=== PATIENT | male | born 1950 | race Caucasian/White ===

== ENCOUNTER 2019-01-02 08:14 | Observation (INO) | payer OTHER ==
[~2019-01-02] VITALS: Ht 157.5 cm; Wt 61.2 kg
[~2019-01-02 08:14] MED LIST: OXYACE5T PO
[2019-01-02 08:53] LABS: BASOPHILS ABSOLUTE AUTO 0.04 K/mm3 (0.00-0.23); BASOPHILS PERCENT AUTO 0 % (0-2); EOSINOPHILS ABSOLUTE AUTO 0.16 K/mm3 (0.00-0.68); EOSINOPHILS PERCENT AUTO 1 % (0-6); Hematocrit 48.8 % (37.0-53.0); IMMATURE GRAN ABSOLUTE AUTO 0.16 K/mm3 (0.00-0.10); IMMATURE GRAN PERCENT AUTO 1 % (0-1); LYMPHOCYTES ABSOLUTE AUTO 2.43 K/mm3 (0.84-5.20); LYMPHOCYTES PERCENT AUTO 14 % (21-46); MONOCYTES ABSOLUTE AUTO 0.76 K/mm3 (0.16-1.47); MONOCYTES PERCENT AUTO 5 % (4-13); Mean Corpuscular HGB Conc 32.8 g/dL (31.5-36.5); Mean Corpuscular Volume 91 fL (80-100); Mean Platelet Volume 10.6 fL (9.1-12.4); NEUTROPHILS ABSOLUTE AUTO 13.39 K/mm3 (1.96-9.15); NEUTROPHILS PERCENT AUTO 79 % (41-73); Platelet Count 272 K/mm3 (150-400); RDW Coefficient Variation 14.2 % (11.7-14.2); RDW Standard Deviation 47.8 fL (35.1-46.3); Red Blood Cell Count 5.34 M/mm3 (4.30-5.90); White Blood Cell Count 16.94 K/mm3 (4.00-11.30)
[2019-01-02 09:04] LABS: Alanine Aminotransfer (ALT/SGP 200 U/L (12-78); Albumin, Blood 3.5 g/dL (3.4-5.0); Albumin/Globulin Ratio 1.1 (0.8-1.8); Alk Phos 88 U/L (50-136); Anion Gap 5 mmol/L (6-16); Aspartate Aminotrans (AST/SGOT 261 U/L (12-37); Bilirubin, Total 0.7 mg/dL (0.1-1.0); Blood Urea Nitrogen 19 mg/dL (8-24); Bun/Creatinine Ratio 15.8 (12.0-20.0); CO2, Blood 27 mmol/L (21-32); Calcium, Blood 8.5 mg/dL (8.5-10.1); Chloride, Blood 108 mmol/L (98-108); Globulin, Blood 3.2 g/dL (2.2-4.0); Glomerular Filtration Rate >60 (60-); Glucose, Blood 144 mg/dL (70-99); Potassium, Blood 4.2 mmol/L (3.5-5.5); Sodium, Blood 140 mmol/L (136-145); Total Protein, Blood 6.7 g/dL (6.4-8.2)
[2019-01-02 09:11] LABS: International Normalized Ratio 1.01; Prothrombin Time Results 10.7 Sec (9.7-11.5)
--- NOTE | 2019-01-02 13:04 | NUR ---
PT ARRIVED TO THE ROOM AT APPROXIMATELY 1300
[2019-01-02] MEDS ORDERED: OMEP20ER PO (13:22)
--- NOTE | 2019-01-02 19:19 | NUR ---
Echocardiogram completed.
--- NOTE | 2019-01-02 19:31 | NUR ---
SHIFT SUMMARY PAIN HAS BEEN MANAGED WITH PO PAIN MEDICATION. PT ALERT AND ORIENTED SINCE ARRIVAL TO ROOM. SBA WHEN OOB. VSS. REPORT GIVEN TO EDWARDO PEREZ.
--- NOTE | 2019-01-03 06:18 | NUR ---
LYING IN SEMI FOWLERS WITH EYES CLOSED. HAS RESTED WELL SINCE START OF SHIFT. HAS BEEN TREATED FOR PAIN X1 THIS SHIFT. DENIES PAIN, DISCOMFORT, OR FURTHER NEEDS AT THIS TIME. SAFETY MEASURES IN PLACE. WILL GIVE HAND OFF TO ONCOMING SHIFT USING SBAR.
[2019-01-03] MEDS ORDERED: OXYC5 PO (12:38)
--- NOTE | 2019-01-03 14:10 | NUR ---
DISCHARGE PT PROVIDED WITH WRITTEN AND VERBAL DISCHARGE INSTRUCTIONS. PT EDUCATED THAT HE SHOULD STAY HYDRATED . PT EDUCATED TO COME TO THE ER IF HE DEVELOPES CHEST PRESSURE THAT IS DIFFERENT FROM THE R RIB PAIN HE HAS BEEN HAVING. PT EDUCATED TO FOLLOW UP WITH HIS PRIMARY CARE DOCTOR WITHIN 1 WEEK. QUESTIONS WERE ANSWERED AND PT REPORTED UNDERSTANDING HOME CARE INSTRUCTIONS. PT AMBULATED OUT WITH FAMILY, PT DECLINED NEED FOR W/C TO GET OUT TO THE VEHICLE.
== END 2019-01-03 12:55 | disposition home or self-care (01) ==
LOC: ER 08:14 → SURS 08:15 → ER 10:02 → SURS 10:02
PROVIDERS: Emergency Medicine; ADMIT Surgery
DX: S22.41XA Multiple fractures of ribs, right side, initial encounter for closed fracture (principal); R00.1 Bradycardia, unspecified; R77.8 Other specified abnormalities of plasma proteins; F17.210 Nicotine dependence, cigarettes, uncomplicated; Z79.899 Other long term (current) drug therapy; W37.8XXA Explosion and rupture of other pressurized tire, pipe or hose, initial encounter
CPT/HCPCS: 36415; 71045; 71260; 74177; 80053; 83690; 84484; 85025; 85610; 85730; 93005; 93010; 93306; 99285-25; G0378; Q9967

== ENCOUNTER 2021-04-10 18:18 | Emergency (ER) | payer OTHER ==
[~2021-04-10] VITALS: Ht 157.5 cm; Wt 60.3 kg
[~2021-04-10 18:18] MED LIST changes: +OMEP20ER PO; +OXYC5 PO
[2021-04-10 19:07] LABS: BASOPHILS ABSOLUTE AUTO 0.05 K/mm3 (0.00-0.23); BASOPHILS PERCENT AUTO 1 % (0-2); EOSINOPHILS ABSOLUTE AUTO 0.32 K/mm3 (0.00-0.68); EOSINOPHILS PERCENT AUTO 4 % (0-6); Hemoglobin 16.3 g/dL (13.5-17.5); IMMATURE GRAN ABSOLUTE AUTO 0.03 K/mm3 (0.00-0.10); IMMATURE GRAN PERCENT AUTO 0 % (0-1); LYMPHOCYTES ABSOLUTE AUTO 2.83 K/mm3 (0.84-5.20); LYMPHOCYTES PERCENT AUTO 32 % (21-46); MONOCYTES ABSOLUTE AUTO 0.81 K/mm3 (0.16-1.47); MONOCYTES PERCENT AUTO 9 % (4-13); Mean Corpuscular HGB 29.7 pg (26.0-34.0); Mean Corpuscular Volume 87 fL (80-100); Mean Platelet Volume 10.9 fL (9.1-12.4); NEUTROPHILS ABSOLUTE AUTO 4.83 K/mm3 (1.96-9.15); NEUTROPHILS PERCENT AUTO 55 % (41-73); Platelet Count 253 K/mm3 (150-400); RDW Coefficient Variation 13.6 % (11.7-14.2); RDW Standard Deviation 43.7 fL (35.1-46.3); Red Blood Cell Count 5.49 M/mm3 (4.30-5.90); White Blood Cell Count 8.87 K/mm3 (4.00-11.30)
[2021-04-10 19:22] LABS: Alanine Aminotransfer (ALT/SGP 22 U/L (12-78); Albumin, Blood 3.9 g/dL (3.4-5.0); Albumin/Globulin Ratio 1.1 (0.8-1.8); Alk Phos 76 U/L (50-136); Anion Gap 6 mmol/L (6-16); Aspartate Aminotrans (AST/SGOT 23 U/L (12-37); Bilirubin, Total 0.7 mg/dL (0.1-1.0); Blood Urea Nitrogen 16 mg/dL (8-24); Bun/Creatinine Ratio 15.4 (12.0-20.0); CO2, Blood 23 mmol/L (21-32); Calcium, Blood 10.1 mg/dL (8.5-10.1); Chloride, Blood 109 mmol/L (98-108); Creatinine, Blood 1.04 mg/dL (0.60-1.20); Globulin, Blood 3.4 g/dL (2.2-4.0); Glomerular Filtration Rate >60 (60-); Glucose, Blood 90 mg/dL (70-99); Potassium, Blood 3.9 mmol/L (3.5-5.5); Sodium, Blood 138 mmol/L (136-145); Total Protein, Blood 7.3 g/dL (6.4-8.2)
== END 2021-04-10 22:55 | disposition home or self-care (01) ==
LOC: ER 18:18
PROVIDERS: Emergency Medicine
DX: H53.8 Other visual disturbances (principal); R40.4 Transient alteration of awareness
CPT/HCPCS: 36415; 70450; 80053; 85025; 93005; 93010; 99285-25

== ENCOUNTER 2023-06-15 19:38 | Emergency (ER) | payer OTHER ==
[~2023-06-15] VITALS: Ht 157.5 cm; Wt 61.2 kg
[2023-06-15 20:18] LABS: BASOPHILS ABSOLUTE AUTO 0.07 K/mm3 (0.00-0.23); BASOPHILS PERCENT AUTO 1 % (0-2); EOSINOPHILS ABSOLUTE AUTO 0.31 K/mm3 (0.00-0.68); EOSINOPHILS PERCENT AUTO 3 % (0-6); Hematocrit 47.8 % (37.0-53.0); Hemoglobin 15.9 g/dL (13.5-17.5); IMMATURE GRAN ABSOLUTE AUTO 0.05 K/mm3 (0.00-0.10); IMMATURE GRAN PERCENT AUTO 0 % (0-1); LYMPHOCYTES ABSOLUTE AUTO 3.37 K/mm3 (0.84-5.20); LYMPHOCYTES PERCENT AUTO 30 % (21-46); MONOCYTES ABSOLUTE AUTO 0.93 K/mm3 (0.16-1.47); MONOCYTES PERCENT AUTO 8 % (4-13); Mean Corpuscular HGB 30.2 pg (26.0-34.0); Mean Corpuscular HGB Conc 33.3 g/dL (31.5-36.5); Mean Corpuscular Volume 91 fL (80-100); Mean Platelet Volume 10.2 fL (9.1-12.4); NEUTROPHILS ABSOLUTE AUTO 6.41 K/mm3 (1.96-9.15); NEUTROPHILS PERCENT AUTO 58 % (41-73); Platelet Count 276 K/mm3 (150-400); Red Blood Cell Count 5.27 M/mm3 (4.30-5.90); White Blood Cell Count 11.14 K/mm3 (4.00-11.30)
[2023-06-15 20:33] LABS: Albumin, Blood 3.5 g/dL (3.4-5.0); Bilirubin, Total 0.2 mg/dL (0.1-1.0); Bun/Creatinine Ratio 17.2 (12.0-20.0); Creatinine, Blood 1.51 mg/dL (0.60-1.20); Globulin, Blood 3.4 g/dL (2.2-4.0); Potassium, Blood 4.6 mmol/L (3.5-5.5); Total Protein, Blood 6.9 g/dL (6.4-8.2)
[2023-06-15 21:02] LABS: Source, Urine Voided
[2023-06-15 21:11] LABS: Appearance, Urine Clear (Clear); Bilirubin, Urine Neg (Neg); Blood, Urine Neg (Neg); Color, Urine Yellow (P-Yellow); Glucose Qualitative, Urine Neg (Neg); Ketones, Urine Neg (Neg); Leukocyte Esterase, Urine Neg (Neg); Nitrite, Urine Neg (Neg); Protein, Urine Neg (Neg); Specific Gravity, Urine 1.015 (1.003-1.022); Urobilinogen, Urine NORM (Normal)
[2023-06-15 21:45] VITALS: BP 139/97
== END 2023-06-15 22:02 | disposition home or self-care (01) ==
LOC: ER 19:38
PROVIDERS: Emergency Medicine
DX: S29.012A Strain of muscle and tendon of back wall of thorax, initial encounter (principal); K21.9 Gastro-esophageal reflux disease without esophagitis; X50.0XXA Overexertion from strenuous movement or load, initial encounter; Z79.899 Other long term (current) drug therapy; Z87.891 Personal history of nicotine dependence
CPT/HCPCS: 74177; 80053; 81003; 83690; 85025; A9270; J1885; J2270; J2405; Q9967

== ENCOUNTER 2024-06-08 07:52 | Day surgery (SDC) | payer OTHER ==
[~2024-06-08] VITALS: Ht 157.5 cm; Wt 61.6 kg
[~2024-06-08 07:52] MED LIST changes: +Lactated Ringer's 1,000 ML IV ONE; +Lidocaine 1%-Epineph 1:100000 20 ML MDV ONE
[2024-06-08] MEDS ORDERED: propofoL 20 ML IV ONE (08:13)
[2024-06-08] MEDS ORDERED: Rocuronium Bromide 10 MG/ML 5ML Injection IV ONE ×3 (08:14→12:22)
[2024-06-08] MEDS ORDERED: Dexamethasone Sod Phos 10 MG/ML 1ML VIAL ONE (08:14)
[2024-06-08] MEDS ORDERED: Ketorolac Tromethamine 30mg Vial ONE (08:14)
[2024-06-08] MEDS ORDERED: Ondansetron HCl 2 MG / ML 2ML Vial ONE (08:14)
[2024-06-08] MEDS ORDERED: FentaNYL Citrate 50 MCG/ML 2 ML Injection ONE (08:14)
[2024-06-08] MEDS ORDERED: Sugammadex Sodium 200 MG/2ML SDV (100 MG/ML) ONE ×2 (08:14→12:49)
[2024-06-08] MEDS ORDERED: Midazolam HCl 1MG / ML 2ML Vial ONE (08:14)
[2024-06-08] MEDS ORDERED: Bupivacaine 0.5% HCl 5 MG/ML 30MLVIAL ONE (08:17)
[2024-06-08] MEDS ORDERED: NS 50 ML IV ONE (08:30)
[2024-06-08] MEDS ORDERED: CeFAZolin Sodium 2,000 MG VIAL ONE (08:30)
[2024-06-08] MEDS ORDERED: Tranexamic Acid 100 ML IV ONE (08:43)
[2024-06-08] MEDS ORDERED: Lactated Ringer's 1,000 ML IV ONE ×2 (08:52→12:53)
--- NOTE | 2024-06-08 10:08 | NUR ---
06/08/24 Dillon8 Divina Chavez 1 MG OF EPI ADDED TO FIRST 3 BAGS OF LR FOR IRREGATION 2X SAFETY STRAPS 4X GEL PADS (1X UNDER EACH SAFETY STRAP, 1X COCCYX, 1X UNDER LEFT ARM BETWEEN ARM AND ARM BOARD) STANDARD FOAM FACE MASK
[2024-06-08] MEDS ORDERED: Phenylephrine HCl 100 MCG/ML-NS 10MLSYR (1MG/10ML) ONE (10:39)
[2024-06-08] MEDS ORDERED: EPINEPhrine HCl 1 MG/ML 1ML Amp XX ONE (10:46)
--- NOTE | 2024-06-08 13:13 | NUR ---
06/08/24 1313 Dulce Hill D/C'D O2 FOR TRIAL [phone], 8L O2 PLACED BY MASK FOR SATS TO 86%
[2024-06-08] MEDS ORDERED: Ipratropium/Albuterol SulF 2.5-0.5MG/3 ML Amp ONE (15:26)
--- NOTE | 2024-06-08 16:24 | NUR ---
06/08/241623 SHANTAL ABREU RN CALLED DR SANTORO ABOUT PT NOT BEING ABLE TO TAKE A 4 SECOND DEEP BREATH. PT CAN ONLY BREATH IN DEEPLY FOR 2 SECONDS STATING THAT HE CAN'T FILL HIS LUNGS UP WITH AIR. DR SANTORO ORDERED A CXR AND A DUONEB TX. PT WAS INSTRUCTED TO USE INCENTIVE SPIROMETER/ USING IT CORRECTLY TO BRING O2 SATS UP FROM 90% TO 93% ON 2L O2 NC. ANESTHESIOLOGIST DR LÓPEZ EXAMINED PT AND EDUCATED HIM ON SIDE AFFECTS OF HAVING THE SHOULDER BLOCK. DR WELCHAM HERE TO EXAMINE PT AND DISCUSSED SMOKING SESSION FOR THE HEALING PROCESS. RADIOLOGIST CALLED AND SAID XRAY WAS CLEAR OF PNEUMOTHORAX. SPOKE WITH DR LÓPEZ AND DR SANTORO CONSULTED EACH OTHER TO DISCUSS COURSE OF ACTION W/ PT. DR SANTORO RECOMMENDED THAT PT STAY IN HOSPITAL FOR OBSERVATION. CHRIS MURGUIA TOLD PT THAT HE MAY NEED TO STAY IN HOSPITAL FOR OBSERVATION PT STATED, "I AM NOT STAYING IN THIS HOSPITAL. THIS IS BULLSHIT. I'M FEELING BETTER AND ALL I NEED IS TO GET OUT OF HERE AND GET SOME FRESH AIR."
[2024-06-08 17:39] VITALS: BP 123/95
== END 2024-06-08 17:22 | disposition home or self-care (01) ==
LOC: ORSCSDS 07:52
PROVIDERS: Orthopaedic Surgery Sports Medicine
PROC: 0LM14ZZ Reattachment of Right Shoulder Tendon, Percutaneous Endoscopic Approach (ICD-10-PCS; principal; 2024-06-08 09:45)
PROC: 0RNJ4ZZ Release Right Shoulder Joint, Percutaneous Endoscopic Approach (ICD-10-PCS; principal; 2024-06-08 09:45)
DX: M75.121 Complete rotator cuff tear or rupture of right shoulder, not specified as traumatic (principal); M25.511 Pain in right shoulder; K21.9 Gastro-esophageal reflux disease without esophagitis; F17.210 Nicotine dependence, cigarettes, uncomplicated; Z79.899 Other long term (current) drug therapy
CPT/HCPCS: 71045; C1713; J0171; J0690; J1100; J1885; J2250; J2371; J2405; J2704; J3010; J7120

== ENCOUNTER 2024-08-11 07:47 | Day surgery (SDC) | payer OTHER ==
[~2024-08-11] VITALS: Ht 157.5 cm; Wt 60.4 kg
[~2024-08-11 07:47] MED LIST changes: +Balanced Salt Epinephrine Irrigation Solution 500 mL IR SCH; +Diazepam 5 MG Tab PO PRN; +Diazepam 5 MG Tab PO SCH; -Lactated Ringer's 1,000 ML IV ONE; -Lidocaine 1%-Epineph 1:100000 20 ML MDV ONE; +Lidocaine HCl/Pf 1% 5 ML VIAL XX SCH; +Moxifloxacin HCL 0.5 MG/0.1 ML 0.4MLSYR LEFTEYE SCH; +Ondansetron 4 MG SoluTab MM PRN; +PHENYLEPHRINE\\TROPICAMIDE\\TETRACAINE OPHTHALMIC DILATING SOLN LEFTEYE PRN; +Povidone-Iodine 450 DROP/30 ML Solution LEFTEYE SCH; +Povidone-Iodine 450 DROP/30 ML Solution ONE; +Tetracaine HCl/Pf 0.5% Opth Soln 4 ml ONE; +Triamcinolone Inj Susp 40 MG / ML 1ML Vial INJ SCH; +Triamcinolone Inj Susp 40 MG / ML 1ML Vial ONE
[2024-08-11] MEDS ORDERED: Diazepam 10 MG Tab ONE (08:24)
--- NOTE | 2024-08-11 08:50 | NUR ---
08/11/24 0850 Gauri Ozuna 0837: ANXIETY 08/02 0838: 10 MG PO VALIUM PER ORDERS
[2024-08-11 09:42] VITALS: BP 119/78
--- NOTE | 2024-08-11 09:57 | NUR ---
08/11/24 0957 Kathleen Hughes D/Nina INSTRUCTIONS GIVEN TO PT, UNDERSTANDING VERBALIZED. PT GIVEN EYE KIT. PT HAS ALL BELONGINGS W/ HIM. PT DENIES PAIN/NAUSEA, TOLERATING COFFEE W/O COMPLAINT. VSS, ON RA. PT WHEELED TO PRIVATE VEHICLE. PT UNSTEADY ON FEET, BUT TRANSFERS FROM WC TO VEHICLE W/O ISSUE. NO VISIBLE SIGNS OF DISTRESS NOTED.
== END 2024-08-11 09:53 | disposition home or self-care (01) ==
LOC: ORSCSDS 07:47
PROVIDERS: Ophthalmology
PROC: 08RK3JZ Replacement of Left Lens with Synthetic Substitute, Percutaneous Approach (ICD-10-PCS; principal; 2024-08-11 09:30)
DX: H25.811 Combined forms of age-related cataract, right eye (principal); Z96.1 Presence of intraocular lens; I10 Essential (primary) hypertension; K21.9 Gastro-esophageal reflux disease without esophagitis; F17.210 Nicotine dependence, cigarettes, uncomplicated; Z79.899 Other long term (current) drug therapy
CPT/HCPCS: A9270; J3301; V2632

== ENCOUNTER 2025-03-03 07:06 | Observation (INO) | payer OTHER ==
[~2025-03-03] VITALS: Ht 177.8 cm; Wt 56.5 kg
[~2025-03-03 07:06] MED LIST changes: -Balanced Salt Epinephrine Irrigation Solution 500 mL IR SCH; -Diazepam 5 MG Tab PO PRN; -Diazepam 5 MG Tab PO SCH; -Lidocaine HCl/Pf 1% 5 ML VIAL XX SCH; -Moxifloxacin HCL 0.5 MG/0.1 ML 0.4MLSYR LEFTEYE SCH; -Ondansetron 4 MG SoluTab MM PRN; -PHENYLEPHRINE\\TROPICAMIDE\\TETRACAINE OPHTHALMIC DILATING SOLN LEFTEYE PRN; -Povidone-Iodine 450 DROP/30 ML Solution LEFTEYE SCH; -Povidone-Iodine 450 DROP/30 ML Solution ONE; -Tetracaine HCl/Pf 0.5% Opth Soln 4 ml ONE; -Triamcinolone Inj Susp 40 MG / ML 1ML Vial INJ SCH; -Triamcinolone Inj Susp 40 MG / ML 1ML Vial ONE
[2025-03-03 07:45] LABS: BASOPHILS ABSOLUTE AUTO 0.04 K/mm3 (0.00-0.23); BASOPHILS PERCENT AUTO 1 % (0-2); EOSINOPHILS ABSOLUTE AUTO 0.15 K/mm3 (0.00-0.68); EOSINOPHILS PERCENT AUTO 2 % (0-6); Hematocrit 46.9 % (37.0-53.0); Hemoglobin 15.7 g/dL (13.5-17.5); IMMATURE GRAN ABSOLUTE AUTO 0.03 K/mm3 (0.00-0.10); IMMATURE GRAN PERCENT AUTO 0 % (0-1); LYMPHOCYTES ABSOLUTE AUTO 1.35 K/mm3 (0.84-5.20); LYMPHOCYTES PERCENT AUTO 19 % (21-46); MONOCYTES ABSOLUTE AUTO 0.44 K/mm3 (0.16-1.47); MONOCYTES PERCENT AUTO 6 % (4-13); Mean Corpuscular HGB Conc 33.5 g/dL (31.5-36.5); Mean Corpuscular Volume 89 fL (80-100); NEUTROPHILS ABSOLUTE AUTO 5.29 K/mm3 (1.96-9.15); NEUTROPHILS PERCENT AUTO 73 % (41-73); NRBC ABSOLUTE 0.00 K/mm3 (0.00-0.02); NRBC Auto 0.0 /100 WBC (0.0-0.2); Platelet Count 243 K/mm3 (150-400); RDW Coefficient Variation 13.6 % (11.7-14.2); RDW Standard Deviation 44.4 fL (35.1-46.3)
[2025-03-03] MEDS ORDERED: Ondansetron HCl 2 MG / ML 2ML Vial ONE (08:12)
[2025-03-03 08:14] LABS: Alanine Aminotransfer (ALT/SGP 20.0 U/L (12-78); Albumin, Blood 3.8 g/dL (3.4-5.0); Albumin/Globulin Ratio 1.3 (0.8-1.8); Anion Gap 8.0 mmol/L (3-11); Aspartate Aminotrans (AST/SGOT 17.0 U/L (12-37); Bilirubin, Total 0.7 mg/dL (0.1-1.0); Blood Urea Nitrogen 10.0 mg/dL (8-24); CO2, Blood 25.0 mmol/L (21-32); Calcium, Blood 8.4 mg/dL (8.5-10.1); Chloride, Blood 107.0 mmol/L (98-108); Creatinine, Blood 1.13 mg/dL (0.60-1.20); Globulin, Blood 2.9 g/dL (2.2-4.0); Glucose, Blood 107.0 mg/dL (70-99); Potassium, Blood 3.9 mmol/L (3.5-5.5); Sodium, Blood 136.0 mmol/L (136-145); Total Protein, Blood 6.7 g/dL (6.4-8.2)
[2025-03-03] MEDS ORDERED: Ondansetron HCl 2 MG / ML 2ML Vial IV ONE (08:15)
[2025-03-03 08:20] LABS: CHOL/HDL RATIO 3.2; Cholesterol 184 mg/dL (50-200); HDL Cholesterol 58 mg/dL (>39); LDL/HDL RATIO 1.9; Low Density Lipoprotein Chol 108 mg/dL (0-110); Triglycerides 92 mg/dL (30-160); Very Low Density Lipoprot Chol 18 mg/dL (6-32)
[2025-03-03 09:37] LABS: Prothrombin Time Results 11.8 Sec (9.7-11.5)
[2025-03-03] MEDS ORDERED: Ondansetron HCl 2 MG / ML 2ML Vial IV PRN (10:10)
[2025-03-03 15:58] VITALS: BP 160/92
--- NOTE | 2025-03-03 17:22 | NUR ---
SHIFT SUMMARY PT A NEW ADMIT THIS EVENING, AOX4. SBA ASSIST BUT HE IS INDEPENDENT AT BASELINE. HE STATES HE FEELS "WOBBLY" ON HIS FEET AT TIMES. NO OTHER DEFICITS NOTED. PT'S FAMILY FRIENDS AND SON AT THE BS. PT LIVES WITH HIS SON. NO ACUTE COMPLAINTS BY THE PT. CALLS AND MAKES HIS NEEDS KNOWN. NO EVENTS ON TELE SINCE THE ADMIT. CALL LIGHT WITHIN REACH, BED LOCKED AND IN THE LOWEST POSITION. WILL REPORT TO ONCOMING NURSE.
[2025-03-03 17:44] LABS: Prothrombin Time Results 11.4 Sec (9.7-11.5)
--- NOTE | 2025-03-03 18:50 | NUR ---
NOTE: PT SWALLOWING WELL, ABLE TO DRINK THINS. TOLERATING PO INTAKE WELL AND THIS NURSE HAD NO CONCERNS.
[2025-03-03 19:37] VITALS: BP 111/70
[2025-03-04] VITALS (7 sets, daily range): BP systolic 91–127; BP diastolic 60–79
--- NOTE | 2025-03-04 05:26 | NUR ---
PT A&O X4, B/P SLIGHTLY ELEVATED, PO INTAKE WNL, NEURO CHECKS NEGATIVE. STARTED ELIQUIS THAT NIGHT AT HS. EDUCATION GIVEN IN R/T ELIQUIS. UNSURE WHAT PLAN IS AT THIS TIME. INDEPENDENT WITH MOBILITY. USES CALL SYSTEM WELL.
[2025-03-04 05:38] LABS: Hematocrit 48.1 % (37.0-53.0); Hemoglobin 16.3 g/dL (13.5-17.5); Mean Corpuscular HGB Conc 33.9 g/dL (31.5-36.5); Mean Corpuscular Volume 90 fL (80-100); NRBC ABSOLUTE 0.00 K/mm3 (0.00-0.02); NRBC Auto 0.0 /100 WBC (0.0-0.2); Platelet Count 254 K/mm3 (150-400); RDW Coefficient Variation 13.8 % (11.7-14.2); RDW Standard Deviation 45.8 fL (35.1-46.3)
[2025-03-04 06:18] LABS: Anion Gap 8 mmol/L (3-11); Blood Urea Nitrogen 13 mg/dL (8-24); CHOL/HDL RATIO 3.1; CO2, Blood 26 mmol/L (21-32); Calcium, Blood 8.9 mg/dL (8.5-10.1); Chloride, Blood 107 mmol/L (98-108); Cholesterol 185 mg/dL (50-200); Creatinine, Blood 1.36 mg/dL (0.60-1.20); Glucose, Blood 84 mg/dL (70-99); HDL Cholesterol 59 mg/dL (>39); LDL/HDL RATIO 1.9; Low Density Lipoprotein Chol 110 mg/dL (0-110); Potassium, Blood 4.2 mmol/L (3.5-5.5); Sodium, Blood 137 mmol/L (136-145); Triglycerides 80 mg/dL (30-160); Very Low Density Lipoprot Chol 16 mg/dL (6-32)
[2025-03-04] MEDS ORDERED: Enoxaparin 40 MG/0.4 ML SYR SC SCH (09:00)
--- NOTE | 2025-03-04 19:20 | NUR ---
DISCHARGE SUMMARY ADMIT SINCE 03/03/25 FOR BLE WEAKNESS AND DIZZINESS, R/O CVA. SYMPTOMATIC RESOLVE, PT INDEPENDENT AT BASELINE. TELE: NSR, 60 BPM. PT HAS FAMILY VISITING, READING BOOKS, WANTING TO RETURN HOME. PLAN FOR ELIQUIS 5 MG PO DAILY FOR FOUND L SIGMOID SINUS THROMBOSIS AND L IJ THROMBOSIS, AND REPEAT MRV TOMORROW PER [facility]. F/U TENTATIVELY TO OCCUR AT [facility]UR[facility] IN 6 MO, THOUGH PT MAY PREFER SWITCHING [facility]. PT ALSO HAS F/[place] ON 03/09/25 AT [place] GOLD TEAM SCHEDULED, AND PLAN OF CARE PENDING RESULTS OF IMAGING.
--- NOTE | 2025-03-04 19:31 | NUR ---
SHIFT SUMMARY ADMIT SINCE 03/03/25 FOR BLE WEAKNESS AND DIZZINESS, R/O CVA. SYMPTOMATIC RESOLVE, PT INDEPENDENT AT BASELINE. TELE: NSR, 60 BPM. PT HAS FAMILY VISITING, READING BOOKS, WANTING TO RETURN HOME. PLAN FOR ELIQUIS 5 MG PO DAILY FOR FOUND L SIGMOID SINUS THROMBOSIS AND L IJ THROMBOSIS, AND REPEAT MRV TOMORROW PER [facility]. F/U TENTATIVELY TO OCCUR AT [facility] IN 6 MO, THOUGH PT MAY PREFER [facility]ITCHING NE[facility]. PT ALSO HAS F/U ON 03/09/25 AT [place] GOLD TEAM SCHEDULED, AND PLAN OF CARE PENDING RESULTS OF IMAGING.
[2025-03-05 04:46] VITALS: BP 117/93
--- NOTE | 2025-03-05 05:49 | NUR ---
PT A&O X4, VS WNL, PT WITH SOFT B/P, AND PT STATES HE DOES NOT HAVE HTN, AND DOESN'T NORMALY TAKE ANYTHING AT HOME. PLAN TO HAVE REPEAT MRI. IS INDEPENDENT IN ROOM.
[2025-03-05 07:25] VITALS: BP 124/77
[2025-03-05 11:35] VITALS: BP 114/69
[2025-03-05] MEDS ORDERED: ELIQUIS5 M2 PO (13:58)
[2025-03-05] MEDS ORDERED: ATOR40TA PO (13:58)
[2025-03-05] MEDS ORDERED: METO25ER PO (13:59)
--- NOTE | 2025-03-05 14:21 | NUR ---
PT DISCHARGED HOME, HAS FOLLOW UP APPT ON 03/09/25 AT [facility]. [facility] AND REQUESTED PT IMAGES BE SENT TO [facility]. PT SELF AMBULATED OUT OF ROOM DECLINES WHEELCHAIR ASSIST
== END 2025-03-07 10:29 | disposition home or self-care (01) ==
LOC: ER 07:06 → MEDS 07:07 → ERHOLD 07:07 → ER 07:07 → MEDS 07:07 → ERHOLD 15:59 → MEDS 16:18 → ER 16:18 → MEDS 03-04 16:18 → ER 03-04 16:18 → MEDS 03-05 14:15
PROVIDERS: Emergency Medicine; ADMIT Internal Medicine
DX: I67.6 Nonpyogenic thrombosis of intracranial venous system (principal); I82.C12 Acute embolism and thrombosis of left internal jugular vein; K21.9 Gastro-esophageal reflux disease without esophagitis; I10 Essential (primary) hypertension; E78.5 Hyperlipidemia, unspecified; F17.210 Nicotine dependence, cigarettes, uncomplicated; Z79.899 Other long term (current) drug therapy
CPT/HCPCS: 36415; 70450; 70496; 70498; 70544; 70551; 80048; 80053; 80061; 83036; 85025; 85027; 85610; 85730; 93005; 93010; 93306; 96374-59; 97161; 97530; 99285-25; A9270; G0378; J2405; Q9967